=== PATIENT | female | born 1980 | race Caucasian/White ===

== ENCOUNTER → 2018-09-14 | Outpatient (CLI) | payer BC, OTHER ==
[~2018-09-14] MED LIST: KET10 PO; LEVO137T22 PO; ONDA4TAB PO; PER PO
--- NOTE | 2018-09-14 08:32 | EKG ---
FACILITY: [facility] [place] PATIENT NAME: LAVERNE MCDONALD : [id number] MR: [id number]: [id number] EXAM DATE: ORDERING PHYSICIAN: LUCY HENLEY TECHNOLOGIST: SALOMON Test Reason : INCREASED POTASSIUM Blood Pressure : / mmHG Vent. Rate : 088 BPM Atrial Rate : 088 BPM P-R Int : 120 ms QRS Dur : 074 ms QT Int : 370 ms P-R-T Axes : 084 092 080 degrees QTc Int : 447 ms Normal sinus rhythm Rightward axis Borderline ECG No previous ECGs available Confirmed by MARIAELENA CHOU ([id number]) on 09/14/2018 9:04:48 AM Referred By: LORY Confirmed By:MARIAELENA CHOU
== END ==
LOC: RESP 08:09
PROVIDERS: ATTEND Physician Assistant
DX: R94.31 Abnormal electrocardiogram [ECG] [EKG] (principal); E87.5 Hyperkalemia; R94.6 Abnormal results of thyroid function studies
CPT/HCPCS: 36415; 84132; 93005